=== PATIENT | male | born 1950 | race Caucasian/White ===

== ENCOUNTER 2019-12-12 15:21 | Emergency (ER) | payer MEDICARE, OTHER ==
[2019-12-12] MEDS ORDERED: Lidocaine 2% Viscous Solution 100 ML Bottle ONE (15:45)
[2019-12-12] MEDS ORDERED: Bacitracin Oint 1 GM U/D Packet TOP ONE (15:46)
--- NOTE | 2019-12-12 15:51 | EDM.PDOC ---
ED HPI GENERAL MEDICAL PROBLEM - General Chief Complaint: Skin Complaint Stated Complaint: SCRAPED R ARM ON A PIECE OF WOOD Time Seen by Provider: 12/12/19 15:40 Source of Information: Reports: Patient, RN History Limitations: Reports: No Limitations - History of Present Illness INITIAL COMMENTS - FREE TEXT/NARRATIVE: 69 yo male fell today and incurred a skin tear/scrape of the R forearm. Is UTD on tetanus. Here for eval and tx. Onset: Today, Sudden Onset Date: 12/12/19 Duration: Minutes: Location: Reports: Upper Extremity, Right Quality: Reports: Burning Severity: Moderate Improves with: Reports: None Worsens with: Reports: Other (touching wound) Context: Reports: Trauma Associated Symptoms: Reports: No Other Symptoms Treatments PIPE FITTER GAS PIPE: Reports: Other (see below) (rinsed under warm water) - Related Data Allergies Allergy/AdvReac Type Severity Reaction Status Date / Time No Known Allergies Allergy Verified 12/12/19 15:39 Home Meds: Home Meds Empagliflozin [Jardiance] 25 mg PO DAILY 12/12/19 [History] Insulin Aspart [NovoLOG] 42 unit .XX BEDTIME 12/12/19 [History] Insulin Regular, Human [NovoLIN R] 8 unit .XX BIDMEALS 12/12/19 [History] Metoprolol Tartrate 50 mg PO BID 12/12/19 [History] atorvaSTATin Calcium [Atorvastatin Calcium] 80 mg PO BEDTIME 12/12/19 [History] lisinopriL [Lisinopril] 20 mg PO DAILY 12/12/19 [History] metFORMIN [Glucophage] 1,000 mg PO BIDMEALS 12/12/19 [History] Past Medical History - Infectious Disease History Infectious Disease History: Reports: Chicken Pox Social & Family History - Tobacco Use Smoking Status *Q: Never Smoker - Caffeine Use Caffeine Use: Reports: Soda - Recreational Drug Use Recreational Drug Use: No ED ROS GENERAL - Review of Systems Review Of Systems: See Below Constitutional: Reports: No Symptoms Musculoskeletal: Reports: No Symptoms Skin: Reports: Wound (R forearm) Neurological: Reports: No Symptoms ED EXAM, SKIN/RASH Exam: See Below Exam Limited By: No Limitations General Appearance: Alert, WD/WN, No Apparent Distress Extremities: Other (Wound to R forearm). No: Arm Pain, Limited Range of Motion, Redness Neurological: Alert, Oriented, CN II-XII Intact, Normal Cognition, No Motor/Sensory Deficits Psychiatric: Normal Affect, Normal Mood Skin: Warm, Normal Color, No Rash, Wound/Incision (partial thickness 8 inch x 2 cm wound to R ant/lateral forearm. ) Location, Skin: Upper Extremity, Right Characteristics: Other (partial thickness) Associated features: Tenderness. No: Warmth, Induration, Lymphangitis Course - Vital Signs Text/Narrative:: Cleaned and dressed by RN. Last Recorded V/S: Last Vital Signs Temp 36.5 C 12/12/19 15:36 Pulse 55 L 12/12/19 15:36 Resp 55 H 12/12/19 15:36 BP 117/66 12/12/19 15:36 Pulse Ox 95 12/12/19 15:36 - Orders/Labs/Meds Orders: Active Orders 24 hr Category Date Time Status Bacitracin [Bacitracin Oint 1 GM] Med 12/12/19 15:46 Once 2 dose TOP ONETIME ONE Medication Orders Bacitracin (Bacitracin Oint 1 Gm) 2 dose TOP ONETIME ONE Stop: 12/12/19 15:47 Meds: Medications Generic Name Dose Route Start Last Admin Trade Name Freq PRN Reason Stop Dose Admin Bacitracin 2 dose 12/12/19 15:46 Bacitracin Oint 1 Gm TOP 12/12/19 15:47 ONETIME ONE Discontinued Medications Generic Name Dose Route Start Last Admin Trade Name Freq PRN Reason Stop Dose Admin Lidocaine HCl 20 ml 12/12/19 15:45 Xylocaine 2% Viscous .XX 12/12/19 15:46 ONETIME ONE Departure - Departure Time of Disposition: 16:15 Disposition: Home, Self-Care 01 Condition: Good Clinical Impression: Skin tear of right forearm without complication Qualifiers: Encounter type: initial encounter Qualified Code(s): S51.811A - Laceration without foreign body of right forearm, initial encounter - Discharge Information *PRESCRIPTION DRUG MONITORING PROGRAM REVIEWED*: No *COPY OF PRESCRIPTION DRUG MONITORING REPORT IN PATIENT RESHMA: No Instructions: Skin Tear, [id number] Referrals: PCP,None [Primary Care Provider] - Additional Instructions: Clean wound twice daily with 1/2 water and 1/2 peroxide. Dry. Apply antibiotic ointment and a new dressing. Take acetaminophen and/or ibuprofen as needed for pain relief. Recheck for signs of infection. Keep wound clean for 3 days. Sepsis Event Note (ED) - Focused Exam Vital Signs: Vital Signs Temp Pulse Resp BP Pulse Ox 12/12/19 15:36 36.5 C 55 L 55 H 117/66 95 - My Orders Last 24 Hours: My Active Orders 12/12/19 15:46 Bacitracin [Bacitracin Oint 1 GM] 2 dose TOP ONETIME ONE - Assessment/Plan Last 24 Hours: My Active Orders 12/12/19 15:46 Bacitracin [Bacitracin Oint 1 GM] 2 dose TOP ONETIME ONE
[2019-12-12] MEDS ORDERED: Lidocaine 2% Viscous Solution 15 ML Cup ONE (16:00)
== END 2019-12-12 16:25 | disposition home or self-care (01) ==
LOC: JP.ED 15:21
DX: S51.811A Laceration without foreign body of right forearm, initial encounter (principal); Z79.899 Other long term (current) drug therapy; W45.8XXA Other foreign body or object entering through skin, initial encounter
CPT/HCPCS: 99282; A9270

== ENCOUNTER 2020-08-22 10:45 | Emergency (ER) | payer MEDICARE, OTHER ==
--- NOTE | 2020-08-22 11:31 | EDM.PDOC ---
ED HPI GENERAL MEDICAL PROBLEM - General Chief Complaint: Lower Extremity Injury/Pain Stated Complaint: LT LEG PAIN Time Seen by Provider: 08/22/20 11:27 Source of Information: Reports: Patient, RN Notes Reviewed History Limitations: Reports: No Limitations - History of Present Illness INITIAL COMMENTS - FREE TEXT/NARRATIVE: 69-year-old gentleman presents emergency department day complaint of lump behind his left knee as well as a painful calf. He did call the MD hotline recommend report to the emergency department for evaluation of DVT and possible blood clot. He states is not feeling short of breath he has been very active he is building a deck he has not had any long trips he has not been hospitalized recently no recent surgeries. - Related Data Allergies Allergy/AdvReac Type Severity Reaction Status Date / Time No Known Allergies Allergy Verified 08/22/20 10:59 Home Meds: Home Meds Empagliflozin [Jardiance] 25 mg PO DAILY 12/12/19 [History] Insulin Aspart [NovoLOG] 39 unit .XX BEDTIME 12/12/19 [History] Insulin Regular, Human [NovoLIN R] 9 unit .XX BIDMEALS 12/12/19 [History] Metoprolol Tartrate 25 mg PO BID 12/12/19 [History] atorvaSTATin Calcium [Atorvastatin Calcium] 80 mg PO BEDTIME 12/12/19 [History] lisinopriL [Lisinopril] 10 mg PO DAILY 12/12/19 [History] metFORMIN [Glucophage] 2,000 mg PO DAILY 12/12/19 [History] Aspirin [Halfprin] 81 mg PO BID 08/22/20 [History] Fish Oil/Blackwell-3 Fatty Acids [Fish Oil 1,000 MG] 1 tab PO DAILY 08/22/20 [History] Past Medical History HEENT History: Reports: Impaired Vision Cardiovascular History: Reports: CAD, High Cholesterol, Hypertension, MS Respiratory History: Reports: Sleep Apnea Genitourinary History: Reports: Diabetic Nephropathy Musculoskeletal History: Reports: Arthritis Endocrine/Metabolic History: Reports: Diabetes, Type II, Obesity/BMI 30+ - Infectious Disease History Infectious Disease History: Reports: Chicken Pox, Measles, Mumps - Past Surgical History Head Surgeries/Procedures: Reports: None HEENT Surgical History: Reports: None Cardiovascular Surgical History: Reports: Coronary Artery Bypass Respiratory Surgical History: Reports: None GI Surgical History: Reports: Appendectomy, Cholecystectomy Endocrine Surgical History: Reports: None Musculoskeletal Surgical History: Reports: Other (See Below) Dermatological Surgical History: Reports: None Social & Family History - Tobacco Use Tobacco Use Status *Q: Former Tobacco User Used Tobacco, but Quit: Yes Month/Year Tobacco Last Used: 1989 Second Hand Smoke Exposure: No - Caffeine Use Caffeine Use: Reports: Soda - Recreational Drug Use Recreational Drug Use: No Review of Systems - Review of Systems Review Of Systems: See Below Respiratory: Reports: No Symptoms Cardiovascular: Reports: No Symptoms Musculoskeletal: Reports: Leg Pain ED EXAM, GENERAL - Physical Exam Exam: See Below Free Text/Narrative:: Examination left leg I do not appreciate any erythema there is no edema I cannot palpate any hard lump. The calf is not tight full range of motion without pain Exam Limited By: No Limitations General Appearance: Alert, WD/WN, No Apparent Distress Respiratory/Chest: No Respiratory Distress Course - Vital Signs Last Recorded V/S: Last Vital Signs Temp 96.0 F L 08/22/20 11:02 Pulse 57 L 08/22/20 11:02 Resp 16 08/22/20 11:02 BP 152/78 H 08/22/20 11:02 Pulse Ox 97 08/22/20 11:02 - Orders/Labs/Meds Orders: Active Orders 24 hr Category Date Time Status VL Duplex Lwr Ext Veins Ltd Lt [US] Stat Exams 08/22/20 13:07 Ordered Labs: Laboratory Tests 08/22/20 Range/Units 11:44 D-Dimer, Quantitative 542.46 H (0.0-500.0) ng/mL Departure - Departure Time of Disposition: 14:58 Disposition: Home, Self-Care 01 Condition: Fair Clinical Impression: Left leg pain - Discharge Information Referrals: Courtney Valladares [employer] [Primary Care Provider] - Forms: ED Department Discharge Additional Instructions: Use Tylenol and Motrin as needed for pain control, please followup with your primary care provider in 3-5 days if not better, please call return to the emergency department with worsening of symptoms. Sepsis Event Note (ED) - Evaluation Sepsis Screening Result: No Definite Risk - Focused Exam Vital Signs: Vital Signs Temp Pulse Resp BP Pulse Ox 08/22/20 11:02 96.0 F L 57 L 16 152/78 H 97 08/22/20 10:59 96.0 F L 57 L 16 152/78 H 97 - My Orders Last 24 Hours: My Active Orders 08/22/20 13:07 VL Duplex Lwr Ext Veins Ltd Lt [US] Stat - Assessment/Plan Last 24 Hours: My Active Orders 08/22/20 13:07 VL Duplex Lwr Ext Veins Ltd Lt [US] Stat Plan: Assessment Acuity = acute Site and laterality = left leg pain Etiology = unknown probably related to work-related injury Manifestations = none Location of injury = Home Lab values = D-dimer elevated slightly 547 ultrasound negative for any DVT Plan We will review lab work ultrasound results time he is can use Tylenol Motrin as needed for pain control follow-up primary care 3 to 5 days if not better This note was dictated using [employer] voice recognition software please call with any questions on syntax or grammar.
--- NOTE | 2020-08-22 15:14 | US ---
VL Duplex Lwr Ext Veins Ltd Lt INDICATION: pain calf FINDINGS: Ultrasound examination of the lower extremity using Doppler and compressive technique demonstrates that the common femoral, femoral, and popliteal veins are patent, and negative for thrombus. The calf veins were segmentally visualized and are negative where seen. IMPRESSION: Negative for deep venous thrombosis.
== END 2020-08-22 15:16 | disposition home or self-care (01) ==
LOC: JP.ED 10:45
DX: M79.662 Pain in left lower leg (principal); I25.10 Atherosclerotic heart disease of native coronary artery without angina pectoris; E78.00 Pure hypercholesterolemia, unspecified; I10 Essential (primary) hypertension; I25.2 Old myocardial infarction; E11.21 Type 2 diabetes mellitus with diabetic nephropathy; E66.9 Obesity, unspecified; M19.90 Unspecified osteoarthritis, unspecified site; Z68.32 Body mass index [BMI] 32.0-32.9, adult; Z79.82 Long term (current) use of aspirin; Z79.4 Long term (current) use of insulin
CPT/HCPCS: 36415; 85379; 93971-26-LT; 93971-LT; 99284-25

== ENCOUNTER 2022-01-27 17:09 | Emergency (ER) | payer MEDICARE, OTHER | END 2022-01-27 19:55 | disposition home or self-care (01) | LOC: JP.ED 17:09 | DX: S20.211A Contusion of right front wall of thorax, initial encounter (principal); I25.10 Atherosclerotic heart disease of native coronary artery without angina pectoris; E78.00 Pure hypercholesterolemia, unspecified; E11.21 Type 2 diabetes mellitus with diabetic nephropathy; I10 Essential (primary) hypertension; I25.2 Old myocardial infarction; E66.9 Obesity, unspecified; Z68.31 Body mass index [BMI] 31.0-31.9, adult; Z79.899 Other long term (current) drug therapy; Z79.4 Long term (current) use of insulin; Z79.84 Long term (current) use of oral hypoglycemic drugs; Z90.49 Acquired absence of other specified parts of digestive tract; W18.39XA Other fall on same level, initial encounter | CPT/HCPCS: 71250; 99283 ==

== ENCOUNTER 2023-08-12 20:17 | Emergency (ER) | payer MEDICARE, OTHER ==
[2023-08-12] MEDS: Bacitracin Oint 1 GM U/D Packet TOP ONE (21:21)
== END 2023-08-12 21:24 | disposition home or self-care (01) ==
LOC: JP.ED 20:17
DX: S50.822A Blister (nonthermal) of left forearm, initial encounter (principal); I10 Essential (primary) hypertension; I25.10 Atherosclerotic heart disease of native coronary artery without angina pectoris; I25.2 Old myocardial infarction; E78.00 Pure hypercholesterolemia, unspecified; E66.9 Obesity, unspecified; E11.9 Type 2 diabetes mellitus without complications; Z68.31 Body mass index [BMI] 31.0-31.9, adult; Z79.4 Long term (current) use of insulin; Z79.84 Long term (current) use of oral hypoglycemic drugs; Z79.82 Long term (current) use of aspirin; Z79.899 Other long term (current) drug therapy; Z90.49 Acquired absence of other specified parts of digestive tract; X50.1XXA Overexertion from prolonged static or awkward postures, initial encounter
CPT/HCPCS: 99282; 99283

== ENCOUNTER 2023-08-22 19:52 | Emergency (ER) | payer MEDICARE, OTHER ==
[2023-08-22 20:24] LABS: BASOPHILS ABSOLUTE AUTO 0.08 K/uL (0.00-0.10); BASOPHILS PERCENT AUTO 0.9 % (0.1-1.3); EOSINOPHILS ABSOLUTE AUTO 0.21 K/uL (0.00-0.40); EOSINOPHILS PERCENT AUTO 2.5 % (0.0-5.4); HEMATOCRIT 43.7 % (38.4-49.7); HEMOGLOBIN 15.2 g/dL (12.9-16.9); IMMATURE GRAN ABSOLUTE AUTO 0.03 K/uL (0.00-0.23); IMMATURE GRAN PERCENT AUTO 0.4 % (0.0-0.7); LYMPHOCYTES PERCENT AUTO 35.3 % (11.4-47.7); MEAN CORPUSCULAR HEMOGLOBIN 30.5 pg (31.6-35.5); MEAN CORPUSCULAR HGB CONC 34.8 g/dL (31.6-35.5); MEAN CORPUSCULAR VOLUME 87.6 fL (81.4-99.0); MONOCYTES ABSOLUTE AUTO 0.85 K/uL (0.20-0.90); NEUTROPHILS ABSOLUTE AUTO 4.32 K/uL (1.0-7.6); NEUTROPHILS PERCENT AUTO 50.9 % (40.0-78.1); PLATELET COUNT,PLT 207 K/uL (130-375); RED BLOOD CELL COUNT 4.99 M/uL (4.14-5.76); WHITE BLOOD CELL COUNT,WBC 8.5 K/uL (3.2-11.0)
[2023-08-22 20:51] LABS: ALANINE AMINOTRANSFERASE,ALT 24 U/L (12-78); ALBUMIN 3.4 g/dL (3.4-5.0); ALKALINE PHOSPHATASE 74 U/L (46-116); AMYLASE 105 U/L (25-115); ANION GAP 7.2 mmol/L (5.0-14.0); ASPARTATE AMNIOTRANSFERASE,AST 18 U/L (15-37); BILIRUBIN TOTAL 0.4 mg/dL (0.2-1.0); BLOOD UREA NITROGEN,BUN 13 mg/dL (7-18); CALCIUM 9.6 mg/dL (8.5-10.1); CARBON DIOXIDE,CO2 31 mmol/L (21-32); CHLORIDE,CL 102 mmol/L (100-108); CREATININE 1.1 mg/dL (0.8-1.3); ESTIMATED GFR 71 mL/min (>60); GLUCOSE RANDOM 168 mg/dL (74-106); MAGNESIUM 1.7 mg/dL (1.8-2.4); POTASSIUM,K 4.2 mmol/L (3.6-5.2); PRO B-TYPE NATRIUR PEPT,BNPPRO 133 pg/mL (5-125); PROTEIN TOTAL,TP 6.9 g/dL (6.4-8.2); SODIUM,NA 140 mmol/L (140-148); TROPONIN I HIGH SENSITIVITY 5.7 pg/mL (<=60.3)
[2023-08-22 20:53] LABS: C-REACTIVE PROTEIN < 0.50 mg/dL (<0.50)
[2023-08-22 22:09] LABS: APPEARANCE,URINE CLEAR (CLEAR); BILIRUBIN,URINE NEGATIVE (NEGATIVE); COLOR,URINE YELLOW (YELLOW); GLUCOSE,URINE 500 mg/dL (NEGATIVE); KETONES,URINE NEGATIVE (NEGATIVE); LEUKOCYTE ESTERASE,URINE NEGATIVE (NEGATIVE); NITRITE,URINE NEGATIVE (NEGATIVE); OCCULT BLOOD,URINE NEGATIVE (NEGATIVE); PROTEIN,URINE NEGATIVE (NEGATIVE); UROBILINOGEN,URINE 0.2 EU/dL (0.2-1.0)
[2023-08-22 22:14] LABS: AMORPHOUS SEDIMENT,URINE NOT SEEN; BACTERIA,URINE FEW; EPITHELIAL CELLS,URINE RARE; MUCUS,URINE NOT SEEN; WBC,URINE NOT SEEN (0-5)
== END 2023-08-22 23:40 | disposition home or self-care (01) ==
LOC: JP.ED 19:52
DX: I11.9 Hypertensive heart disease without heart failure (principal); I25.10 Atherosclerotic heart disease of native coronary artery without angina pectoris; I25.2 Old myocardial infarction; E78.00 Pure hypercholesterolemia, unspecified; E66.9 Obesity, unspecified; E11.40 Type 2 diabetes mellitus with diabetic neuropathy, unspecified; Z95.1 Presence of aortocoronary bypass graft; Z90.49 Acquired absence of other specified parts of digestive tract; Z87.891 Personal history of nicotine dependence; Z79.4 Long term (current) use of insulin; Z79.899 Other long term (current) drug therapy; Z79.85 Long-term (current) use of injectable non-insulin antidiabetic drugs; Z79.82 Long term (current) use of aspirin; Z79.84 Long term (current) use of oral hypoglycemic drugs; Z68.30 Body mass index [BMI] 30.0-30.9, adult
CPT/HCPCS: 36415; 71045; 71045-26; 80053; 81001; 82150; 83605; 83735; 83880; 84484; 85025; 85379; 86140; 93005; 93010; 99284; 99285

== ENCOUNTER 2024-01-26 12:34 | Emergency (ER) | payer MEDICARE, OTHER ==
[2024-01-26 12:53] LABS: BASOPHILS ABSOLUTE AUTO 0.09 K/uL (0.00-0.10); BASOPHILS PERCENT AUTO 0.8 % (0.1-1.3); EOSINOPHILS ABSOLUTE AUTO 0.12 K/uL (0.00-0.40); EOSINOPHILS PERCENT AUTO 1.1 % (0.0-5.4); HEMATOCRIT 45.1 % (38.4-49.7); HEMOGLOBIN 16.1 g/dL (12.9-16.9); IMMATURE GRAN ABSOLUTE AUTO 0.07 K/uL (0.00-0.23); IMMATURE GRAN PERCENT AUTO 0.7 % (0.0-0.7); LYMPHOCYTES ABSOLUTE AUTO 3.53 K/uL (0.8-3.3); LYMPHOCYTES PERCENT AUTO 32.9 % (11.4-47.7); MEAN CORPUSCULAR HEMOGLOBIN 31.4 pg (31.6-35.5); MEAN CORPUSCULAR HGB CONC 35.7 g/dL (31.6-35.5); MEAN CORPUSCULAR VOLUME 87.9 fL (81.4-99.0); MONOCYTES ABSOLUTE AUTO 0.99 K/uL (0.20-0.90); MONOCYTES PERCENT AUTO 9.2 % (3.3-12.6); NEUTROPHILS ABSOLUTE AUTO 5.92 K/uL (1.0-7.6); NEUTROPHILS PERCENT AUTO 55.3 % (40.0-78.1); PLATELET COUNT,PLT 222 K/uL (130-375); RED BLOOD CELL COUNT 5.13 M/uL (4.14-5.76); WHITE BLOOD CELL COUNT,WBC 10.7 K/uL (3.2-11.0)
[2024-01-26 13:16] LABS: A/G RATIO 1.1 (1.2-2.2); ALANINE AMINOTRANSFERASE,ALT 32 U/L (12-78); ALBUMIN 3.9 g/dL (3.4-5.0); ALKALINE PHOSPHATASE 74 U/L (46-116); ASPARTATE AMNIOTRANSFERASE,AST 22 U/L (15-37); BILIRUBIN TOTAL 0.6 mg/dL (0.2-1.0); BLOOD UREA NITROGEN,BUN 14 mg/dL (7-18); CARBON DIOXIDE,CO2 26 mmol/L (21-32); CHLORIDE,CL 105 mmol/L (100-108); CREATININE 1.3 mg/dL (0.8-1.3); EST CRCL DRUG DOSING (CG) 52.88 mL/min; ESTIMATED GFR 58 mL/min (>60); GLUCOSE RANDOM 222 mg/dL (74-106); POTASSIUM,K 4.8 mmol/L (3.6-5.2); PROTEIN TOTAL,TP 7.5 g/dL (6.4-8.2); SODIUM,NA 139 mmol/L (140-148); TROPONIN I HIGH SENSITIVITY 41.5 pg/mL (<=60.3)
[2024-01-26 13:20] LABS: ANION GAP 12.8 mmol/L (5.0-14.0)
[2024-01-26] MEDS: Heparin Sodium 5,000 Units/ML Vial IVPUSH ONE (13:24)
[2024-01-26] MEDS: Heparin Sodium/D5W 25,000 UNITS/500 ML BAG IV SCH (13:25)
== END 2024-01-26 14:50 | disposition other institution (70) ==
LOC: JP.ED 12:34
DX: I24.9 Acute ischemic heart disease, unspecified (principal); I10 Essential (primary) hypertension; E78.00 Pure hypercholesterolemia, unspecified; E11.9 Type 2 diabetes mellitus without complications; Z79.82 Long term (current) use of aspirin; Z79.84 Long term (current) use of oral hypoglycemic drugs; Z79.899 Other long term (current) drug therapy; Z90.49 Acquired absence of other specified parts of digestive tract
CPT/HCPCS: 36415; 80053; 84484; 85025; 93005; 96365; 99285-25; J1644

== ENCOUNTER 2024-07-30 14:59 | Emergency (ER) | payer MEDICARE, OTHER ==
[2024-07-30] MEDS: Diphtheria,Pertussis(Acell),Tetanus Vaccine 0.5 ML Syringe IM ONE (17:29)
== END 2024-07-30 17:50 | disposition home or self-care (01) ==
LOC: JP.ED 14:59
DX: S01.21XA Laceration without foreign body of nose, initial encounter (principal); R07.89 Other chest pain; I10 Essential (primary) hypertension; I25.2 Old myocardial infarction; I25.10 Atherosclerotic heart disease of native coronary artery without angina pectoris; E78.00 Pure hypercholesterolemia, unspecified; E11.21 Type 2 diabetes mellitus with diabetic nephropathy; E11.40 Type 2 diabetes mellitus with diabetic neuropathy, unspecified; E66.9 Obesity, unspecified; Z95.1 Presence of aortocoronary bypass graft; Z90.49 Acquired absence of other specified parts of digestive tract; Z79.899 Other long term (current) drug therapy; Z79.4 Long term (current) use of insulin; Z79.82 Long term (current) use of aspirin; Z68.31 Body mass index [BMI] 31.0-31.9, adult; Z23 Encounter for immunization; Z79.84 Long term (current) use of oral hypoglycemic drugs; W01.198A Fall on same level from slipping, tripping and stumbling with subsequent striking against other object, initial encounter; Y93.01 Activity, walking, marching and hiking
CPT/HCPCS: 12011; 70450; 70450-26; 71101-26-RT; 71101-RT; 90471; 99284-25

== ENCOUNTER 2024-12-29 18:23 | Emergency (ER) | payer MEDICARE, OTHER ==
[2024-12-29] MEDS: Amiodarone 150 MG/3 ML SDV IVPUSH ONE (18:32)
[2024-12-29 18:40] LABS: BASOPHILS ABSOLUTE AUTO 0.12 K/uL (0.00-0.10); BASOPHILS PERCENT AUTO 0.9 % (0.1-1.3); EOSINOPHILS ABSOLUTE AUTO 0.15 K/uL (0.00-0.40); EOSINOPHILS PERCENT AUTO 1.1 % (0.0-5.4); IMMATURE GRAN ABSOLUTE AUTO 0.08 K/uL (0.00-0.23); IMMATURE GRAN PERCENT AUTO 0.6 % (0.0-0.7); LYMPHOCYTES ABSOLUTE AUTO 5.73 K/uL (0.8-3.3); LYMPHOCYTES PERCENT AUTO 42.3 % (11.4-47.7); MONOCYTES ABSOLUTE AUTO 1.16 K/uL (0.20-0.90); MONOCYTES PERCENT AUTO 8.6 % (3.3-12.6); NEUTROPHILS ABSOLUTE AUTO 6.30 K/uL (1.0-7.6); NEUTROPHILS PERCENT AUTO 46.5 % (40.0-78.1); PLATELET COUNT,PLT 278 K/uL (130-375); RED BLOOD CELL COUNT 5.29 M/uL (4.14-5.76); WHITE BLOOD CELL COUNT,WBC 13.5 K/uL (3.2-11.0)
[2024-12-29 19:04] LABS: A/G RATIO 1.1 (1.2-2.2); ALANINE AMINOTRANSFERASE,ALT 32 U/L (12-78); ASPARTATE AMNIOTRANSFERASE,AST 23 U/L (15-37); BILIRUBIN TOTAL 0.4 mg/dL (0.2-1.0); BLOOD UREA NITROGEN,BUN 16 mg/dL (7-18); CARBON DIOXIDE,CO2 23 mmol/L (21-32); CHLORIDE,CL 101 mmol/L (100-108); CREATININE 1.1 mg/dL (0.8-1.3); EST CRCL DRUG DOSING (CG) 59.91 mL/min; ESTIMATED GFR 70 mL/min (>60); GLUCOSE RANDOM 214 mg/dL (74-106); POTASSIUM,K 4.2 mmol/L (3.6-5.2); PROTEIN TOTAL,TP 7.7 g/dL (6.4-8.2); SODIUM,NA 138 mmol/L (140-148); TROPONIN I HIGH SENSITIVITY 4.7 pg/mL (<=60.3)
== END 2024-12-29 21:28 | disposition other institution (70) ==
LOC: JP.ED 18:23
DX: I47.20 Ventricular tachycardia, unspecified (principal); I10 Essential (primary) hypertension; I25.2 Old myocardial infarction; E78.00 Pure hypercholesterolemia, unspecified; E11.21 Type 2 diabetes mellitus with diabetic nephropathy; E11.40 Type 2 diabetes mellitus with diabetic neuropathy, unspecified; Z95.810 Presence of automatic (implantable) cardiac defibrillator; Z79.899 Other long term (current) drug therapy; Z79.4 Long term (current) use of insulin; Z79.84 Long term (current) use of oral hypoglycemic drugs; Z79.85 Long-term (current) use of injectable non-insulin antidiabetic drugs; Z90.49 Acquired absence of other specified parts of digestive tract
CPT/HCPCS: 36415; 80053; 83735; 84484; 85025; 93005; 96365; 96366; 99285; J0282; J7060; 93010